=== PATIENT | male | born 1965 | race Caucasian/White ===

== ENCOUNTER 2022-08-07 10:44 | Emergency (ER) | payer OTHER, SELFPAY ==
--- NOTE | ~2022-08-07 | XR_ITS ---
EXAMINATION: XR shoulder LT min 2V DATE: 08/07/2022 11:04 INDICATION: Left shoulder pain. Fall. TECHNIQUE: 4 views of left shoulder were obtained. COMPARISON: None. FINDINGS: Bone alignment is normal. No fracture. Joint spaces are well maintained. IMPRESSION: 1. Normal left shoulder. Reviewed, dictated and finalized at location A. IMPRESSION: 1. Normal left shoulder.
--- NOTE | ~2022-08-07 | XR_ITS ---
EXAMINATION: XR wrist LT min 3V DATE: 08/07/2022 11:31 INDICATION: Left wrist injury and pain and swelling. TECHNIQUE: 4 views of left wrist were obtained. COMPARISON: None. FINDINGS: There are calcifications dorsal to the carpus on the lateral view. Bone alignment is normal . There is mild osteoarthritis of distal radioulnar joint and moderate osteoarthritis of triscaphe angeles int and first carpometacarpal joint. IMPRESSION: 1. Calcifications dorsal to the carpus on the lateral view, most likely dystrophic calcifications. Av ulsion fracture of dorsal pole of triquetrum cannot be excluded. 2. Polyarticular osteoarthritis. Reviewed, dictated and finalized at location A. IMPRESSION: 1. Calcifications dorsal to the carpus on the lateral view, most likely dystrop hic calcifications. Avulsion fracture of dorsal pole of triquetrum cannot be ex cluded. 2. Polyarticular osteoarthritis.
[2022-08-07 10:49] VITALS: BP 155/65; PULSE 81; RESP 16; TEMP 36.7; O2SAT 97
--- NOTE | 2022-08-07 10:53 | ED.UPPEXIN ---
HPI - Extremity Injury (Upper) General Chief Complaint: Extremity Injury, Upper Stated Complaint: left shoulder pain after falling off hoverboard Time Seen by Provider: 08/07/22 10:50 Source: patient Mode of arrival: ambulatory Limitations: no limitations History of Present Illness HPI narrative: Patient is a 56 y/o male who presents to the ED with c/o L shoulder pain. Patient reports he fell off an electric hoverboard last night landing on his left side. He had slight pain in last night, but developed worsening pain and swelling to his left shoulder this morning, prompting his presentation. He also reports having mild pain to his left wrist. He did not hit his head or lose consciousness. Denies any other injuries, chest pain, SOB. Related Data Allergies Allergy/AdvReac Type Severity Reaction Status Date / Time No Known Allergies Allergy Verified 08/07/22 10:45 Review of Systems Review of Systems: CONSTITUTIONAL: Denies fever, chills, or sweats. CARDIOVASCULAR: Denies chest pain. RESPIRATORY: Denies cough or dyspnea. MUSCULOSKELETAL: Reports pain to left shoulder, left wrist. NEUROLOGIC: Denies HI, LOC, headache, numbness, or weakness. All systems reviewed & are unremarkable except as noted in HPI and below PMFSH Past Medical History Medical History (Updated 08/07/22 @ 12:07 by Caro Case PA-C) Diabetes mellitus HLD (hyperlipidemia) HTN (hypertension) Surgical History Surgical History (Updated 08/07/22 @ 11:22 by Caro Case PA-C) History of surgery on right wrist History of thumb surgery Social History Social History (Updated 08/07/22 @ 11:22 by Caro Case PA-C) Smoking status: Current every day smoker Exam Narrative: GENERAL: Well appearing, well-nourished, non-toxic, in no acute distress. HEAD: Normocephalic, atraumatic. NECK: Supple. No adenopathy, no masses. No midline spinal tenderness. RESPIRATORY: Airway patent, respirations nonlabored. Clear to auscultation bilaterally, no rales, rhonchi, wheezing. CARDIOVASCULAR: Regular rate and rhythm without murmurs, rubs, or gallops. Radial pulses 2+ and equal bilaterally. MUSCULOSKELETAL: Limited ROM of L shoulder due to pain - passive flexion to about 45 degrees, abduction to 90 degrees. Tenderness to palpation and swelling over anterior L shoulder/L upper chest wall - over area of anterior deltoid/lateral pectoralis major. Bruising beginning over L proximal humerus/axillary region. Mild limited ROM of L wrist flexion with TTP over distal and carpal bones on ulnar side. Minimal swelling to L wrist. No bruising noted to L wrist. SKIN: Warm, dry, normal color. No rashes. NEURO: A&O X3. Speech clear. Cranial nerves II-XII grossly intact. Steady gait. No ataxic movements. PSYCHIATRIC: Appropriate mood and affect. Normal interaction. Course Vital Signs Vital signs: Vital Signs Temperature 98.0 F 08/07/22 10:49 Pulse Rate 81 08/07/22 10:49 Respiratory Rate 16 08/07/22 10:49 Blood Pressure 155/65 H 08/07/22 10:49 Pulse Oximetry 97 08/07/22 10:49 Temperature 98.0 F 08/07/22 10:49 Pulse Rate 81 08/07/22 10:49 Respiratory Rate 16 08/07/22 10:49 Blood Pressure 155/65 H 08/07/22 10:49 Pulse Oximetry 97 08/07/22 10:49 MDM - Extremity Injury (Upper) MDM Narrative Medical decision making narrative: Patient presented with L wrist/shoulder pain s/p fall. Patient's injury is consistent with musculoskeletal etiology. No signs of neurologic or vascular compromise on physical examination. Compartments are soft without signs of compartment syndrome. Pain is consistent with exam and injury. XRs of L shoulder negative. Did discuss with patient possibility of rotator cuff pathology with how limited patient's ROM is currently. XR L wrist negative showing possible triquetrum avulsion injury. Patient is tender in the area of the triquetrum and an avulsion fracture would be consistent with his mechanism of injury. José Miguel
[2022-08-07] MEDS: KETOROLAC (*BKC) 60 MG/2 ML VIAL IM (11:33)
== END 2022-08-07 13:05 | disposition home or self-care (01) ==
PROVIDERS: Emergency Provider General Practice
DX: S46.912A Strain of unspecified muscle, fascia and tendon at shoulder and upper arm level, left arm, initial encounter (principal); S63.502A Unspecified sprain of left wrist, initial encounter; S62.112A Displaced fracture of triquetrum [cuneiform] bone, left wrist, initial encounter for closed fracture; E11.9 Type 2 diabetes mellitus without complications; E78.5 Hyperlipidemia, unspecified; I10 Essential (primary) hypertension; F17.200 Nicotine dependence, unspecified, uncomplicated; M19.032 Primary osteoarthritis, left wrist; V00.848A Other accident with standing micro-mobility pedestrian conveyance, initial encounter
CPT/HCPCS: 29125; 73030; 73110; 96372; 99284; A4565; J1885

== ENCOUNTER 2022-09-26 15:52 | Outpatient (CLI) | payer OTHER, SELFPAY ==
--- NOTE | ~2022-09-26 | MR_ITS ---
EXAMINATION: MR shoulder LT wo con DATE: 09/26/2022 16:45 INDICATION: Left shoulder pain TECHNIQUE: Magnetic resonance imaging (MRI) of the left shoulder was performed without intravenous co ntrast. Sequences included axial PD-weighted FS FSE, coronal oblique PD-weighted FS FSE, coronal obli que T2-weighted FS FSE, sagittal PD-weighted FS FSE, and sagittal T1-weighted SE. COMPARISON: None. FINDINGS: Coracoacromial arch: The acromion undersurface is curved in morphology (type II). The coracoacromial ligament is normal. M ild acromioclavicular osteoarthritis. Rotator cuff: Moderate supraspinatus and infraspinatus tendinopathy. There is a full-thickness tear along the super ior and middle facet footplates of the entire supraspinatus and all but the posterior most aspect of the infraspinatus tendon. The right-sided supraspinatus tear margin is retracted approximately 5 cm m edially to midway between the level of the apex of the humeral head and the lateral margin of the gle noid. Mild subscapularis tendinopathy without tear.The teres minor tendon is normal. There is mild fa tty atrophy of the infraspinatus. Moderate to severe fatty atrophy of the teres minor. No evident imp inging lesions along the course of the suprascapular nerve. There is feathery muscular edema within t he supraspinatus and infraspinatus muscle bellies which along with the absence of significant fatty a trophy of the supraspinatus muscle belly suggests the tendon tears are likely relatively recent. Biceps tendon, glenoid labrum and glenohumeral cartilage: Mild tendinopathy without tear at the proximal intra-articular portion of the long head biceps tendon . There is anterior of the superior glenoid labrum beginning anteriorly at the 1:00 position at the b iceps anchor and extending posteriorly and inferiorly to the 5:00 position of the inferior glenoid. T here are small marginal osteophytes along the inferior glenoid.Partial-thickness chondral ulceration across the cephalad aspect of the humeral head. Fluid: Small glenohumeral joint effusion with extension of a small amount fluid through the full-thickness r otator cuff tear defect into the subacromial/subdeltoid bursa. No loose osteochondral bodies. Bones: There is cephalad subluxation of the humeral head with respect to the glenoid and resulting significa nt narrowing of the subacromial space secondary to the rotator cuff tear. No fracture or abnormal mar row replacing process. There is cystic change extending deep to the medial facet of the greater tuber osity. IMPRESSION: 1. Moderate supraspinatus and infraspinatus tendinopathy with full-thickness tear involving the entir e supraspinatus tendon and all but the posterior most aspect of the infraspinatus tendon. 2. Mild left glenohumeral osteoarthritis with extensive tearing of the superior, posterior and inferi or glenoid labrum. 3. Prominent fatty atrophy of the teres minor muscle belly with intact appearing tendon which is of i ndeterminate etiology. No impinging lesions identified along the course of the suprascapular nerve. Reviewed, dictated and finalized at location A. [employer] IMPRESSION: 1. Moderate supraspinatus and infraspinatus tendinopathy with full-thickness te ar involving the entire supraspinatus tendon and all but the posterior most asp ect of the infraspinatus tendon. 2. Mild left glenohumeral osteoarthritis with extensive tearing of the superior , posterior and inferior glenoid labrum. 3. Prominent fatty atrophy of the teres minor muscle belly with intact appearin g tendon which is of indeterminate etiology. No impinging lesions identified al annie the course of the suprascapular nerve.
== END 2022-09-26 15:53 ==
PROVIDERS: Visit Provider Orthopaedic Surgery
DX: G89.11 Acute pain due to trauma (principal); M25.512 Pain in left shoulder; M75.82 Other shoulder lesions, left shoulder; S46.812A Strain of other muscles, fascia and tendons at shoulder and upper arm level, left arm, initial encounter; M19.012 Primary osteoarthritis, left shoulder
CPT/HCPCS: 73221

== ENCOUNTER 2023-02-13 09:40 | Outpatient (CLI) | payer OTHER, SELFPAY ==
--- NOTE | 2023-02-13 10:00 | ECG_ITS ---
Measurements Intervals Steen Rate: 84 P: 65 MN: 148 QRS: 42 QRSD: 98 T: 43 QT: 376 QTc: 447 Interpretive Statements SINUS RHYTHM DELAYED PRECORDIAL R/S TRANSITION BASELINE ARTIFACT- I, II, III, AVR, AVL BORDERLINE ECG NO PREVIOUS ECG AVAILABLE FOR COMPARISON Electronically Signed On 02-13-2023 10:19:00 CDT by Geovany Campbell D.O.
[2023-02-13 10:38] LABS: Anion Gap 6 mmol/L (8-16); Blood Urea Nitrogen 14 mg/dL (9-20); Calcium 9.5 mg/dL (8.4-10.2); Carbon Dioxide 29 mmol/L (22-30); Chloride 105 mmol/L (98-107); Estimated Glomerular Filt Rate > 60; Glucose 148 mg/dL (65-110); Potassium 4.1 mmol/L (3.4-5.0); Sodium 140 mmol/L (137-145)
== END 2023-02-13 09:41 | disposition home or self-care (01) ==
PROVIDERS: Anesthesiology; Visit Provider Orthopaedic Surgery
DX: Z01.812 Encounter for preprocedural laboratory examination (principal); Z01.810 Encounter for preprocedural cardiovascular examination; I10 Essential (primary) hypertension; E11.9 Type 2 diabetes mellitus without complications
CPT/HCPCS: 36415; 80048; 93005

== ENCOUNTER 2023-02-17 01:14 | Day surgery (SDC) | payer OTHER, SELFPAY ==
[2023-02-08 17:17] VITALS: BMI 36.4
--- NOTE | 2023-02-08 17:32 | SUR.PREOP ---
Report to the Outpatient Waiting Room, entrance under the green pavilion located off [facility], at time 1000 on date 02/17/23. Planned Procedure Time: 1200. Time changes happen often and if your time is changed the preop area will call you the afternoon before. - You and your visitor will be asked to self-screen and do not enter if you have any COVID symptoms. - Only one visitor is requested with a max of two and NO children visitors are allowed at this time. - The patient visitor may be requested to leave or wait in car when not with patient due to distancing restrictions. - A mask is optional within the hospital at this time. Patients may have clear liquids (water, carbonated beverages, clear teas, apple juice) until 3 hours prior to surgery with a maximum of 20 ounces. - No food from midnight until time of surgery - Infants may have breast milk until 4 hours before surgery, formula 6 hours prior to surgery. - Children will be allowed to drink immediately following surgery. If applicable, please bring a bottle or sippy cup to assist with drinking. Juice, water, soda, and popsicles are readily available. For infants on formula, please bring formula the day of surgery. Pacifiers are allowed. Take the following medications with a SIP of water the morning of surgery: N/A DO NOT STOP ANY OF YOUR OTHER PRESCRIPTION MEDICATIONS PRIOR TO SURGERY ?EXCEPT THE FOLLOWING Medications to discontinue per physician ___ASPIRIN FOR ONE WEEK PRIOR TO PROCEDURE___ Date to take last dose Please no make-up, nail estonian, hairspray, perfume, deodorant, or body powder the day of surgery. No jewelry (including any body piercings) or valuables the day of surgery, leave them at home. Please take a shower or bath the night before, or the morning of, surgery with an antibacterial soap. Wear comfortable, loose fitting clothing. Children are encouraged to wear pajamas. - Jewelry must be removed prior to entering the operating room. Rings and piercings that are not removed may be cut off. - The hospital will not accept responsibility for valuables. - Please leave all valuables, including medications, at home the day of surgery. If you are going home after surgery, a licensed corrugated fastener driver must drive you home. - NO public transportation without another adult if you receive anesthesia. - We recommend that an adult stay with you for 24 hours following discharge. - We also recommend that you do not drive, make important decision, drink alcoholic beverages, or take any drugs that were not prescribed by your health care provider for at least 24 hours after your discharge time. For Pediatric surgeries, we recommend two adults accompany the child home. Follow any additional instructions given to you from your surgeon. If you or anyone in your household have experienced Covid symptoms in the past week, please notify your surgeon or the nurse liaison at the phone number below for possible testing. Telephone instructions given to _PATIENTS_and asked if any additional questions and then verbalized understanding. Patient advised to call surgeon office or pre surgery nurse liaison [phone] if any additional questions.
[2023-02-17] VITALS (10 sets, daily range): BP systolic 132–165; BP diastolic 68–83; PULSE 68–105; RESP 12–24; TEMP 36.2–36.9; O2SAT 91–98
[2023-02-17] MEDS: ACETAMINOPHEN 500 MG TABLET 1000 MG PO (10:10)
[2023-02-17] MEDS: LACTATED RINGERS 1,000 ML 30 ML IV CONT ×3 (10:30→16:57)
[2023-02-17 10:44] LABS: Glucose Point of Care 164 mg/dl (65-105)
--- NOTE | 2023-02-17 11:13 | WPDANESEPPF ---
Anes - Initial Pre Proc Eval Procedure: Operation Date: 02/17/23 12:00 Proposed Procedures p Left Shoulder Arthroscopic Rotator Cuff Repair with Subacromial Decompression - Kris Serra MD Date/Time: 02/17/23 11:13 Surgeon: Kris Serra MD Pre Op Diagnosis: full thickness rotator cuff tear left shoulder Patient Data Age: 57 Gender: M Height: 1.74 m Weight: 107.1 kg Last Vital Signs Temp 36.9 C 02/17/23 10:43 Pulse 87 02/17/23 10:43 Resp 16 02/17/23 10:43 BP 154/72 H 02/17/23 10:43 Pulse Ox 95 02/17/23 10:43 O2 Del Method Room Air 02/17/23 10:43 Allergies Allergy/AdvReac Type Severity Reaction Status Date / Time No Known Allergies Allergy Verified 02/17/23 10:08 Home Medications Medication Instructions Recorded Confirmed Type amlodipine 10 mg tablet 10 mg PO DAILY 08/11/22 02/17/23 History aspirin 81 mg tablet,delayed 81 mg PO DAILY 08/11/22 02/17/23 History release (Adult Aspirin Regimen) glipizide 10 mg tablet 10 mg PO DAILY 08/11/22 02/08/23 History losartan 50 mg tablet 50 mg PO DAILY 08/11/22 02/17/23 History metformin 500 mg/5 mL oral solution 500 mg PO DAILY 08/11/22 02/17/23 History rosuvastatin 20 mg tablet 20 mg PO DAILY 08/11/22 02/17/23 History hydrochlorothiazide 12.5 mg capsule 12.5 mg PO DAILY 02/08/23 02/17/23 History Laboratory Tests 02/17/23 10:40 POC Capillary Glucose 164 mg/dl H mg/dl (65-105) Patient hx anesthesia problems: none Family hx anesthesia problems: none Results Review: All pre-operative results and documents have been reviewed as part of the pre-operative evaluation. [facility] Past Medical History Medical History Diabetes mellitus HLD (hyperlipidemia) HTN (hypertension) Tobacco use Surgical History Surgical History History of surgery on right wrist History of thumb surgery Social History Social History Smoking packs per day: 0.5 Smoking cigarettes per day: 10.0 Years smoked: 30 Smoking pack-years: 15.00 Smoking status: Current every day smoker Tobacco type: cigarettes Alcohol intake: current Drinks per week: 4 Substance use: never Lack of Transportation: No Lack of Food: Never True Current Housing: I Have Housing Concerned About Future Housing: No Difficulty Paying Gas/Electric Bills: No Difficulty Paying for Meds: No Currently Unemployed: No Education: Decline to Answer Difficulty w/ Childcare or Family Care: No Anes - Eval Final PreProcedure Day of Procedure 02/17/23 11:13 Patient weight: obese Heart: regular rate and rhythm Lungs: clear to auscultation Airway: Mallampati scale class II and special considerations poor dentition Neurological: alert and oriented Last oral intake: >/= 8 hours ASA classification: III Emergent: no Anesthetic plan: proceed Anesthesia type and monitoring: general ETT and standard monitoring Results Review: All pre-operative results and documents have been reviewed as part of the pre-operative evaluation. Informed Consent: The patient's anesthetic plan and its attendant risks and benefits were discussed with the patient/family/POA. Questions were solicited and answers provided to the satisfaction of the patient/family/POA.
[2023-02-17] MEDS: KETOROLAC 15 MG/ML VIAL (*BKC) IV PUSH (11:54)
--- NOTE | 2023-02-17 12:28 | WPDHPUPDATE1 ---
History and Physical Update Update Date/Time: 02/17/23 12:28 History and Physical has been reviewed, including an updated exam of the patient. There are NO changes in the patient's condition. Risks, benefits, and alternatives have been discussed and questions answered. Patient agrees to proceed with procedure.
[2023-02-17] MEDS: ceFAZolin 2 GM/D5W 50 ML 2 GM/50 ML BAG IVPB (12:38)
--- NOTE | 2023-02-17 13:28 | WPDANESPNB ---
Anes - Peripheral Nerve Block Date/Time: 02/17/23 13:28 I have discussed with the patient/family/POA the placement of a peripheral nerve block for post-operative pain management, including associated risks, benefits, complications, and side effects. Alternative methods of post-operative analgesia were detailed. Questions were solicited and answers provided to the satisfaction of the patient/family/POA. Time-Out: A pre-procedural Time-Out was completed immediately before starting the procedure and confirmed: Patient Identification, Site, Procedure, Patient Position and the Availability of Requisite Equipment. Clinical Indications: Acute post-operative pain management requested by the operative surgeon. Nerve Block Insertion Note Anes-nerve block: interscalene left Patient position: supine Skin prep: chlorhexidine Needle: 22 gauge, stimulating, insulated echogenic needle. Needle length: 50 mm Technique: nerve stimulation lost at (mA) (0.3) and ultrasound Injectate: bupivacaine 0.5% with epi 5 mcg/ml (30cc no epi) and dexamethasone (mg) (8) Observations: tolerated well Complications: none Procedure start time:: 1228 Procedure end time:: 1234
[2023-02-17 15:51] LABS: Glucose Point of Care 167 mg/dl (65-105)
[2023-02-17] MEDS: ONDANSETRON INJ 4 MG/2 ML VIAL IV PUSH (16:08)
[2023-02-17] MEDS: SCOPOLAMINE 1.5 MG PATCH TRANSDERM (16:49)
[2023-02-17] MEDS: diphenhydrAMINE HCl INJ 50 MG/ML VIAL 25 MG IV PUSH (16:50)
--- NOTE | 2023-02-17 17:00 | W.PM.PROC2 ---
Procedure Note - Detailed Date of Procedure 02/17/23 Pre-op Diagnosis Full thickness rotator cuff tear left shoulder Post-op Diagnosis Other (1. Rotator cuff tear 2. Subacromial impingement 3. Adhesive capsulitis 4. Degenerative labral tear) Procedure Performed Left shoulder 1. Arthroscopic rotator cuff repair 2. Arthroscopic subacromial decompression 3. Arthroscopic capsular release 4. Arthroscopic labral debridement Surgeon Kris Serra MD Online Communications Manager Taylor Nelson PA-C Anesthesia General and Regional ( interscalene block) Indications Severe shoulder pain weakness and stiffness after falling off of a hover board. Diabetes mellitus. Findings Extensive scarring of the shoulder. It was very stiff preoperatively. Slight manipulation was performed. Very large retracted rotator cuff tear with the supraspinatus retracted to the level of the glenoid. The tissue was released but was not very mobile. The posterior and anterior tissue was brought back together with margin convergence. The footprint was medialized approximately 6 mm. A posterior suture anchor was placed with 2 horizontal mattress sutures. Another all suture anchor was placed anteriorly with 3 simple sutures. An additional luggage tag was placed anterior and an additional luggage tag was placed near the center of the repair. These 2 sutures as well as the posterior mattress sutures were brought into a SwiveLock anchor laterally. This compressed the tendon tissue very nicely in a double row. A final suture from the anchor was placed in the anterior dog ear. The bursal tissue was extremely proliferative and scarred down. This was carefully released. The glenohumeral joint showed mild arthritic change with significant degenerative labral tearing. Contracture of the capsule was prominent and careful release was performed. The biceps did not show any significant pathology. The subscapularis was also healthy in appearance. There was a moderate subacromial spur which was treated with acromioplasty. Description of Procedure Preoperative antibiotics were given. An interscalene block was administered in the preoperative area. The patient was bought brought to the operating room. A general anesthetic was administered. The patient was carefully positioned in the beach chair position. The head and neck were carefully positioned. The non operative extremity was also carefully positioned. The shoulder was prepped and draped in the usual sterile fashion. Examination was performed. Standard posterior and anterior arthroscopic portals were established. Inflow achieved with the arthroscopic pump using saline and epinephrine. The glenohumeral joint was carefully inspected. Mild arthritis and contracture was confirmed. Capsule release was performed with the hook probe carefully visualizing from multiple anterior and posterior ankles. The inferior axilla was released very carefully with small puncture holes in the inferior thickened capsule. Attention was turned to the subacromial space. The bursa was very thickened. A complete bursectomy was performed. The rotator cuff and footprint were lightly debrided. Due to the significant tension of the cuff the footprint was slightly medialized. A modest acromioplasty was performed. The tear configuration was carefully assessed. At this point, it was clear that the tissue would not reduce anatomically. Margin convergence however with 2 sutures brought the tendon much closer to the footprint. A luggage tag was placed to assist with mobilization and understanding the tear. Complete release of the under and surface and superior aspect of the cuff was performed. There were some adhesions anteriorly but otherwise there was not much tethering the cuff itself. Two all suture, suture anchors were placed. Posterior and anterior cuff were secured as described above. These sutures, as well as 2 luggage tag sutures, were placed into the lateral SwiveLoc
== END 2023-02-17 20:00 | disposition home or self-care (01) ==
PROVIDERS: Visit Provider Orthopaedic Surgery
PROC: (CPT 29805; principal; 2023-02-17 12:00)
DX: S46.012A Strain of muscle(s) and tendon(s) of the rotator cuff of left shoulder, initial encounter (principal); M75.42 Impingement syndrome of left shoulder; M75.02 Adhesive capsulitis of left shoulder; M75.82 Other shoulder lesions, left shoulder; V00.848A Other accident with standing micro-mobility pedestrian conveyance, initial encounter; G89.18 Other acute postprocedural pain; E11.9 Type 2 diabetes mellitus without complications; I10 Essential (primary) hypertension; E78.5 Hyperlipidemia, unspecified; F17.210 Nicotine dependence, cigarettes, uncomplicated; E66.9 Obesity, unspecified; Z68.35 Body mass index [BMI] 35.0-35.9, adult; Z79.84 Long term (current) use of oral hypoglycemic drugs; Z79.82 Long term (current) use of aspirin
CPT/HCPCS: 29827; 29826; 23020; 64415; 36415; 80048; 82948; 93005; A4565; A9270; C1713; J0171; J0690; J1100; J1200; J1885; J2250; J2405; J2704; J2710; J3010; J7120